=== PATIENT | female | born 1950 | race Caucasian/White ===

== ENCOUNTER 2019-02-17 21:23 | Emergency (ER) | payer MEDICARE ==
[~2019-02-17] VITALS: Ht 165.1 cm; Wt 117.9 kg
[2019-02-17 21:35] VITALS: BP 137/83
--- NOTE | 2019-02-17 21:56 | NUR ---
REPORT TO ANTONIO REEVES WHO ASSUMED CARE OF PT.
== END 2019-02-17 22:41 | disposition home or self-care (01) ==
LOC: ED 22:24
DX: L02.415 Cutaneous abscess of right lower limb (principal); E78.00 Pure hypercholesterolemia, unspecified; I10 Essential (primary) hypertension; E11.9 Type 2 diabetes mellitus without complications; Z90.89 Acquired absence of other organs; Z90.49 Acquired absence of other specified parts of digestive tract; Z87.891 Personal history of nicotine dependence
CPT/HCPCS: 10160; 99284